=== PATIENT | male | born 1995 | race Caucasian/White ===

== ENCOUNTER → 2016-05-17 | Outpatient (CLI) | payer OTHER ==
--- NOTE | 2016-05-17 18:59 | MR ---
MR brain without contrast HISTORY: Absence epileptic syndrome Multiplanar multisequence imaging through the brain No comparisons Corpus callosum, pituitary, cervical medullary junction, cerebellopontine angles are unremarkable. No restricted diffusion to suggest subacute ischemia there is no hemorrhage or hydrocephalus. Extensive inflammatory change present in the ethmoid air cells and maxillary sinus. Brain signal is maintained . There are normal vascular flow voids. Orbits show symmetric appearance. IMPRESSION: Extensive sinus disease. Normal brain MRI.
== END | disposition home or self-care (01) ==
LOC: RADMRIMAIN 16:11
PROVIDERS: ATTEND Psychiatry & Neurology Neurology
DX: G40.A09 Absence epileptic syndrome, not intractable, without status epilepticus (principal)
CPT/HCPCS: 70551

== ENCOUNTER 2017-04-22 14:58 | Inpatient (IN) | payer MEDICAID, OTHER ==
--- NOTE | 2017-04-22 15:17 | ED ---
General Adult HPI - General Source: patient, family, police, RN notes reviewed, old records reviewed Mode of arrival: ambulatory Limitations: no limitations <Rodrigo Oliveira - Last Filed: 04/22/17 15:16> <Denny Casanova - Last Filed: 04/22/17 17:12> - General Chief complaint: Psychiatric Symptoms Stated complaint: Mental Health Eval Time Seen by Provider: 04/22/17 15:06 - History of Present Illness Initial comments: This is a 21-year-old male to the ER for evaluation. He presents today for evaluation regarding psychiatric illness. Patient states he needs help. Patient presents with [employer]. Patient denies drugs rel call abuse (Rodrigo Oliveira) - Related Data Allergies Allergy/AdvReac Type Severity Reaction Status Date / Time Cephalosporins Allergy Unknown Verified 04/22/17 15:15 iodine Allergy Unknown Verified 04/22/17 15:15 Penicillins Allergy Rash/Hives Verified 04/22/17 15:15 shellfish derived [Shellfish] Allergy Unknown Verified 04/22/17 15:15 sulfamethoxazole Allergy Unknown Verified 04/22/17 15:15 [From Bactrim] trimethoprim [From Bactrim] Allergy Unknown Verified 04/22/17 15:15 Review of Systems ROS Other: All systems not noted in ROS Statement are negative. <Rodrigo Oliveira - Last Filed: 04/22/17 15:16> ROS Other: All systems not noted in ROS Statement are negative. <Denny Casanova - Last Filed: 04/22/17 17:12> ROS Statement: Those systems with pertinent positive or pertinent negative responses have been documented in the HPI. Past Medical History Additional Past Medical History / Comment(s): Autism History of Any Multi-Drug Resistant Organisms: None Reported Additional Past Surgical History / Comment(s): eye surgery Past Psychological History: ADD/ADHD, Anxiety, Bipolar Smoking Status: Never smoker Past Alcohol Use History: None Reported Past Drug Use History: None Reported <Rodrigo Oliveira - Last Filed: 04/22/17 15:16> General Exam Limitations: no limitations General appearance: alert, in no apparent distress Head exam: Present: atraumatic, normocephalic, normal inspection Eye exam: Present: normal appearance, PERRL, EOMI. Absent: scleral icterus, conjunctival injection, periorbital swelling ENT exam: Present: normal exam, mucous membranes moist Neck exam: Present: normal inspection. Absent: tenderness, meningismus, lymphadenopathy Respiratory exam: Present: normal lung sounds bilaterally. Absent: respiratory distress, wheezes, rales, rhonchi, stridor Cardiovascular Exam: Present: regular rate, normal rhythm, normal heart sounds. Absent: systolic murmur, diastolic murmur, rubs, gallop, clicks GI/Abdominal exam: Present: soft, normal bowel sounds. Absent: distended, tenderness, guarding, rebound, rigid Extremities exam: Present: normal inspection, full ROM, normal capillary refill. Absent: tenderness, pedal edema, joint swelling, calf tenderness Back exam: Present: normal inspection Neurological exam: Present: alert, oriented X3, CN II-XII intact Psychiatric exam: Present: normal affect, normal mood Skin exam: Present: warm, dry, intact, normal color. Absent: rash <Rodrigo Oliveira - Last Filed: 04/22/17 15:16> Course <Rodrigo Oliveira - Last Filed: 04/22/17 15:16> <Denny Casanova - Last Filed: 04/22/17 17:12> Vital Signs 04/22/17 15:01 Temperature 99.4 F Pulse Rate 92 Respiratory 20 Rate Blood Pressure 139/80 O2 Sat by Pulse 97 Oximetry - Reevaluation(s) Reevaluation #1: 04/22/17 15:17 Medically clear for psychiatric evaluation (Rodrigo Oliveira) Medical Decision Making <Rodrigo Oliveira - Last Filed: 04/22/17 15:16> <Denny Casanova - Last Filed: 04/22/17 17:12> - Medical Decision Making Patient was evaluated by EPS and will be anteriorly signing in and being admitted. Further orders per EPS. (Denny Casanova) - Lab Data Lab Results 04/22/17 Range/Units 15:40 Urine Opiates Screen Not Detected (NotDetected) Ur Oxycodone Screen Not Detected (NotDetected) Urine Methadone Screen Not Detected (NotDetected) Ur Propoxyphene Screen Not Detected (NotDetected) Ur Barbiturates Screen Not Detected (NotDetected) U Tricyclic Antidepress Not Detected (NotDetected) Ur Phencyclidine Scrn Not Detected (NotDetected) Ur Amphetamines Screen Not Detected (NotDetected) U Methamphetamines Scrn Not Detected (NotDetected) U Benzodiazepines Scrn Not Detected (NotDetected) Urine Cocaine Screen Not Detected (NotDetected) U Marijuana (THC) Screen Not Detected (NotDetected) Disposition <Rodrigo Oliveira - Last Filed: 04/22/17 15:16> <Denny Casanova - Last Filed: 04/22/17 17:12> Clinical Impression: Depression Disposition: ADMITTED IP TO THIS HOSP Condition: Stable
[2017-04-22 16:03] LABS: Amphetamine Screen,Urine Not Detected (NotDetected); Barbiturate Screen,Urine Not Detected (NotDetected); Benzodiazepines Screen,Urine Not Detected (NotDetected); Cocaine Screen,Urine Not Detected (NotDetected); Methadone Screen, Urine Not Detected (NotDetected); Opiate Screen,Urine Not Detected (NotDetected); Oxycodone Screen, Urine Not Detected (NotDetected); Phencyclidine Screen,Urine Not Detected (NotDetected); Tricyclic Antidepressant,Urine Not Detected (NotDetected); Urn Cannabinoid Scrn Not Detected (NotDetected)
[2017-04-22] MEDS ORDERED: ACETAMINOPHEN TAB 325 MG TAB PO PRN (17:15)
[2017-04-22] MEDS ORDERED: MAG HYDROX/AL HYDROX/SIMETH 30 ML CUP PO PRN (17:15)
[2017-04-22] MEDS ORDERED: MAGNESIUM HYDROXIDE 2,400 MG/10 ML CUP PO PRN (17:15)
[2017-04-22 18:24] VITALS: BMI 36.8
[2017-04-22] MEDS: ARIPiprazole 15 MG TAB PO SCH (20:48)
[2017-04-22] MEDS: TRIAMCINOLONE ACET 0.5% CREAM 15 GM TUBE TOPICAL SCH (22:22)
[2017-04-23] MEDS: CHOLECALCIFEROL 1,000 UNIT TAB PO SCH (08:45)
[2017-04-23] MEDS: lamoTRIgine 100 MG TAB PO SCH ×2 (08:45→17:37)
[2017-04-23] MEDS: LORATADINE 10 MG TAB PO SCH (08:45)
[2017-04-23] MEDS: LISINOPRIL 5 MG TAB PO SCH (08:46)
[2017-04-23 08:54] LABS: Basophils % (A) 0 %; Eosinophils # (A) 0.3 k/uL (0-0.7); Eosinophils % (A) 4 %; HCT 54.9 % (39.0-53.0); HGB 17.2 gm/dL (13.0-17.5); Lymphocytes # (A) 1.5 k/uL (1.0-4.8); Lymphocytes % (A) 20 %; MCH 28.4 pg (25.0-35.0); MCHC 31.3 g/dL (31.0-37.0); MCV 90.7 fL (80.0-100.0); Mean Platelet Volume 7.1; Monocytes # (A) 0.4 k/uL (0-1.0); Monocytes % (A) 6 %; Neutrophils % (A) 68 %; Platelet Count 223 k/uL (150-450); RBC 6.05 m/uL (4.30-5.90); RDW 12.5 % (11.5-15.5); WBC 7.3 k/uL (4.0-11.0)
[2017-04-23 08:55] LABS: ALT 98 U/L (21-72); AST 43 U/L (17-59); Albumin 4.7 g/dL (3.5-5.0); Alkaline Phosphatase 86 U/L (38-126); Anion Gap 15 mmol/L; Blood Urea Nitrogen 19 mg/dL (9-20); Calcium 10.1 mg/dL (8.4-10.2); Carbon Dioxide 30 mmol/L (22-30); Chloride 99 mmol/L (98-107); Cholesterol 157 mg/dL (<200); Glucose 107 mg/dL (74-99); HDL Cholesterol 35 mg/dL (40-60); LDL Cholesterol,Calculated 95 mg/dL (0-99); Potassium 5.1 mmol/L (3.5-5.1); Sodium 144 mmol/L (137-145); Total Bilirubin 0.5 mg/dL (0.2-1.3); Total Protein 7.4 g/dL (6.3-8.2); Triglycerides 133 mg/dL (<150)
[2017-04-23] MEDS: TRIAMCINOLONE ACET 0.5% CREAM 15 GM TUBE TOPICAL SCH (11:02)
--- NOTE | 2017-04-23 13:59 | HP ---
HISTORY AND PHYSICAL DATE OF ADMISSION: 04/22/2017 IDENTIFYING DATA: A 21-year-old single male patient. HISTORY OF PRESENT ILLNESS: Mr. White is admitted to the inpatient psychiatric unit with concerns of depression and thoughts of suicide. Patient states he was having thoughts of suicide. Said he had multiple plans to stab himself, slice his wrist upwards, slash his throat, [place] and [place] someone off or jumping in front of a car. He states that the thoughts of suicide started about a week ago and has been consistent since then. Says he was not feeling safe. He says he was brought here by the police. He had some discussions through [facility] and they told his mom to call the police. He was compliant with the police. He says that he has had a lot of depression lately. Stressors have been issues with online issues with a game and it was people being he says weird and trying to start stuff. Sleep and appetite; sleep has been decreased. Appetite has been minimal. He has had decreased interest in things. He states that his Paxil was started about a week ago to help with social anxiety. It changed from Lexapro and he feels like he is having withdrawal from Lexapro. He is feeling much better it sounds like when he was on the Lexapro. PSYCHIATRIC HISTORY: Most recent medications include Abilify 15 mg at bedtime. Paxil was 20 mg daily, Lamictal 150 mg b.i.d. He does give history of manic episodes as well as depression. He sees a therapist, Suzanne, and his psychiatrist is Dr. Guadarrama. The Lexapro was changed to Paxil approximately a week ago. He wants to get back on Lexapro because he felt good on that. He has had 2 admissions as a 14-year-old to an inpatient psychiatric unit. No history of suicide attempts. PSYCHIATRIC FAMILY HISTORY: Mom and dad with depression. MEDICAL HISTORY: Hypertension. CURRENT MEDICATIONS: Tylenol p.r.n., Maalox p.r.n., Abilify, Broviac, vitamin D3, Lamictal, Zestril, Claritin, milk of magnesia p.r.n., Paxil. DRUG AND ALCOHOL HISTORY: Denies. SOCIAL HISTORY: Lives with his mom and cat. He went to school through the 11th grade. He is not doing any current work. He is on disability for mental health. He is in a current relationship with he says his girlfriend who he has met on line for the last couple weeks. He has not met her or seen pictures of her. He does talk with her online. MENTAL STATUS EXAM: He is alert, pleasant, and cooperative. His speech is fluent not rapid or pressured. Thought processes organized. His mood is described as "kind of low." He denies any thoughts of harm to self currently and feels safe here on the unit. He denies any thoughts of harm to others. He denies any hallucinations. He does not make any giuseppe delusional statements. Cognitively appears to be grossly intact. I do not note any significant disorientation or memory disturbance. STRENGTHS/WEAKNESSES: Strengths are seeking treatment. Weaknesses are coping skills. IMPRESSIONS: 1. Bipolar disorder, depressed. 2. Social anxiety disorder by history. PLAN OF TREATMENT/RECOMMENDATIONS: Patient is admitted to the inpatient psychiatric unit at [facility] on a voluntary basis. He will be placed on a SP 50 minute precautions. He will participate in group and activity therapies basic laboratory workup to be done. The patient medical consultation will be ordered. Will maintain Lamictal 150 mg b.i.d. as a mood stabilizer and Abilify 15 mg at bedtime to also assist with mood stabilization. We will discontinue the Paxil and place him back on Lexapro, which he describes a positive response to and good tolerability at 10 mg daily. We will look into family supports. Estimated length of stay is 5-7 days. Prognosis is guarded. MMODL / IJN: [id number] /
[2017-04-23] MEDS: ESCITALOPRAM 10 MG TAB PO SCH (14:03)
[2017-04-23] MEDS: BRIVIACT 50 MG PO SCH ×3 (15:44→19:46)
[2017-04-23] MEDS ORDERED: PARoxetine 20 MG TAB PO SCH (17:00)
[2017-04-23 19:21] LABS: Hemoglobin A1C 5.4 % (4.0-6.0)
[2017-04-23] MEDS: ARIPiprazole 15 MG TAB PO SCH (21:03)
[2017-04-24] MEDS: LORATADINE 10 MG TAB PO SCH (08:07)
[2017-04-24] MEDS: ESCITALOPRAM 10 MG TAB PO SCH (08:07)
[2017-04-24] MEDS: lamoTRIgine 100 MG TAB PO SCH ×2 (08:07→17:45)
[2017-04-24] MEDS: LISINOPRIL 5 MG TAB PO SCH (08:07)
[2017-04-24] MEDS: CHOLECALCIFEROL 1,000 UNIT TAB PO SCH (08:09)
[2017-04-24] MEDS: BRIVIACT 50 MG PO SCH ×2 (09:06→17:44)
--- NOTE | 2017-04-24 13:03 | PN ---
DATE OF SERVICE: 04/24/2017 PROGRESS NOTE CHIEF COMPLAINT: The patient was admitted for depression. He had thoughts of suicide. He was not feeling safe. INTERVAL HISTORY: Patient has been doing fairly well. He said the main issue that he thinks was bothering him was that he was switched from Lexapro to Paxil. He had been taking Lexapro 20 mg a day. About 2 weeks ago, the Lexapro was discontinued altogether and he was started on Paxil. He said very quickly after the change he started having what he felt was withdrawal from Lexapro. He had mood changes. He had physical symptoms. He was vague on particulars. He said he had gotten started on Paxil for social anxiety problems. He says now that he is back on Lexapro he feels much relieved. He says he is back to his baseline. His mood is improving. He has a better outlook. Physical symptoms have quieted. He slept fairly well last night. He has not had change in his general health. He tolerates his psychotropic medications. MENTAL STATUS: The patient gave good eye contact. Psychomotor activity and speech were normal. His thoughts were clear. His affect was somewhat constricted. His mood was even. He did not appear to be distressed. ASSESSMENT: I will continue the current diagnosis and treatment plan. I discussed medication options with the patient. At this point, we will increase his Lexapro back up to 20 mg a day where he had been previously. I discussed long-term treatment issues in regards to his antidepressants. There might be consideration for further increase in his Lexapro that could help social anxiety disorder. We will continue to focus on stabilization and discharge planning. MMODL / DOMINGAN: [id number] / MTDD
--- NOTE | 2017-04-24 17:29 | P.CON ---
Consult Note - . Consult date: 04/23/17 Assessment/Plan:: Mr. White is a 21-year-old male with a past medical history of hypertension , anxiety, bipolar disorder admitted to the psychiatric unit for suicidal ideation. We are consulted for management of his medical issues. Pt has been escorted by police for suicidal ideation. Patient states that he does not have any active ongoing medical complaints. On reviewing his past medical history he has hypertension for which she takes 5 mg of lisinopril. He was started on lisinopril for the past 1 month. There is family history of hypertension in both of his patients. REVIEW OF SYSTEMS: NEURO:No c/o weakness of the extremties, No facial droop, No speech abnormalities. VASCULAR: Peripheral nervous system within the normal limits no edema HEMATOLOGIC: No history of easy bleeding and bruising . No recent infections . RESPIRATORY: No cough, No SOB, No chest discomfort. IMMUNE: No infections INTEGUMENT: no rashes OPHTHALMOLOGIC: No blurry vision and no eye discharge : No dysuria or hematuria CARDIAC: No chest pain , shortness of breath , paroxysmal nocturnal dyspnea MUSCULOSKELETAL : No Aches or pains in the joints or muscles. GI: No abdominal pain, Nausea or vomiting. No constipation or diarrhea. Past medical history- hypertension, anxiety, bipolar disorder Medications -triamcinolone 0.5% cream, vitamin D3 5000 units by mouth daily, paroxetine 20 mg by mouth daily, Lamictal 150 mg daily, Gaunfacine 4 mg by mouth daily, Dexmethylphenidate 30 mg by mouth daily, Abilify 50 medical as by mouth daily, Brivaractetam 50 mg BID. ALLERGIES Allergies Allergy/AdvReac Type Severity Reaction Status Date / Time Cephalosporins Allergy Unknown Verified 04/22/17 15:15 iodine Allergy Unknown Verified 04/22/17 15:15 Penicillins Allergy Rash/Hives Verified 04/22/17 15:15 shellfish derived [Shellfish] Allergy Unknown Verified 04/22/17 15:15 sulfamethoxazole Allergy Unknown Verified 04/22/17 15:15 [From Bactrim] trimethoprim [From Bactrim] Allergy Unknown Verified 04/22/17 15:15 Family history_ hypertension in both her parents Social history- denies having any history of smoking, no alcohol abuse, no recreational drugs PHYSICAL exam 04/22/17 15:01 Temperature 99.4 F Pulse Rate 92 Respiratory 20 Rate Blood Pressure 139/80 O2 Sat by Pulse 97 Oximetry GENERAL EXAM GEN. APPEARANCE: alert, in no apparent distress HEAD EXAM: atraumatic, normocephalic, normal inspection EYE EXAM: normal appearance, PERRL, EOMI. Absent: scleral icterus, conjunctival injection, periorbital swelling ENT EXAM: normal exam, mucous membranes moist NECK EXAM: normal inspection. Absent: tenderness, meningismus, full ROM, lymphadenopathy RESPIRATORY EXAM: normal lung sounds bilaterally. Absent: respiratory distress , wheezes, rales, rhonchi, stridor CARDIOVASCULAR EXAM: regular rate, normal rhythm, normal heart sounds. Absent : systolic murmur, diastolic murmur, rubs, gallop, clicks GI/ABDOMINAL EXAM: soft, normal bowel sounds. Absent: distended, tenderness, guarding, rebound, rigid EXTREMITIES EXAM: normal inspection, full ROM, normal capillary refill. Absent : tenderness, pedal edema, joint swelling, calf tenderness BACK EXAM: normal inspection NEUROLOGICAL EXAM: alert, oriented X3, CN II-XII intact, No gross motor or sensory deficit SKIN EXAM: warm, dry, intact, normal color. Absent: rash- ASSESSMENT #1 suicidal ideation #2 hypertension #3 history of anxiety #4 history of bipolar disorder PLAN : Management of his bipolar disorder as per psychiatric services. Patient has to be continued on 5 mg of lisinopril for his hypertension. Patient's labs have been reviewed Will follow the patient on as-needed basis. Thank you for the consult.
[2017-04-24] MEDS: ARIPiprazole 15 MG TAB PO SCH (20:04)
[2017-04-25 06:53] VITALS: BP 117/70; PULSE 82; RESP 17; TEMP 97.5
[2017-04-25] MEDS: BRIVIACT 50 MG PO SCH (08:04)
[2017-04-25] MEDS: CHOLECALCIFEROL 1,000 UNIT TAB PO SCH (08:05)
[2017-04-25] MEDS: lamoTRIgine 100 MG TAB PO SCH (08:06)
[2017-04-25] MEDS: LORATADINE 10 MG TAB PO SCH (08:07)
[2017-04-25] MEDS: LISINOPRIL 5 MG TAB PO SCH (08:07)
[2017-04-25] MEDS ORDERED: ESCITALOPRAM 20 MG TAB PO SCH (09:00)
--- NOTE | 2017-04-25 12:29 | DS ---
DISCHARGE SUMMARY DATE OF SERVICE: 04/25/2017 DATE OF ADMISSION: 04/22/2017. DATE OF DISCHARGE: 04/25/2017. ADMISSION AND DISCHARGE DIAGNOSES: 1. Bipolar disorder, depressed. 2. Social anxiety disorder by history. HISTORY OF PRESENT ILLNESS: The patient is a 21-year-old male. He was admitted for depression with thoughts of suicide. He had multiple plans such as cutting his wrist, cutting his throat, jumping in front of a car. He said that he started having suicide thoughts in the last week and that he was not feeling safe. He has some contact with [facility], where he has ongoing care. It was difficult to be clear what stress issues he was dealing with. One was that he was involved in some online lamar issues where he apparently felt belittled by people. He had not been sleeping well. Appetite was down. He had loss of interest. One issue was that just recently he had been taken off of Lexapro and started on Paxil. He said that the Lexapro was stopped abruptly. He was started on Paxil 20 mg a day about 2 weeks prior to admission. He said he felt that he was in some kind withdrawal from stopping the Lexapro. He felt physically uncomfortable, but he had trouble giving details. He had a lot of anxiety. He was also on Abilify 15 mg a day and Lamictal 150 mg twice a day. He is followed by Dr. Guadarrama at the [facility]. He was admitted for further evaluation. PAST MEDICAL HISTORY AND PHYSICAL EXAM: As per Dr. Ndiaye. MENTAL STATUS EXAM: The patient presented in a calm manner. His speech was appropriate. Thought process organized. Mood somewhat down. He denied thoughts of harm at the time of evaluation. He felt safe on the unit. There was no indication of thought disorder. Cognition was clear. COURSE OF HOSPITALIZATION: The patient was admitted for comprehensive medical psychiatric and psychosocial evaluation. We engaged the patient in individual and group therapeutic activities. On admission, the patient requested to go back on the Lexapro. He was started on 10 mg a day and then the dose was increased to 20 mg a day which he said he had been taking previously. He was also continued on the Abilify and Lamictal. The patient maintained a fairly good mood during his hospital stay. He voiced no thoughts about self-harm. He felt that those issues were completely gone. He would come out in the day area. He was appropriate in his interactions with others. He attended groups. He was an active participant. He established a good sleep pattern. He was appropriate in his interactions. He voiced motivation to continue with his medications. He was able to engage in appropriate discussions about discharge planning. A family meeting with the patient and his mother was held at the day of discharge to address any concerns in regards to follow up. CONDITION AT DISCHARGE: Patient was stable. His mood was even. He voiced no thoughts of self-harm. He tolerated his medications well. RECOMMENDATIONS AND FOLLOW UP: The patient was discharged to home. He resides with his mother. DISCHARGE MEDICATIONS: Lamictal 150 mg twice a day. Abilify 15 mg a day and Lexapro 20 mg a day. He also had been on Intuniv and Focalin prior to admission. The appropriateness of those medications was to be deferred to Dr. Guadarrama when the patient is seen in followup. The patient has a followup appointment at [facility], 04/28/2017 at 1:30 pm. He was also referred back to Dr. Moralez for primary care. MMODL / IJN: [id number] /
== END 2017-04-25 12:47 | disposition home or self-care (01) | DRG 881 ==
LOC: EC 14:58 → 3MHU 17:02
PROVIDERS: ADMIT Psychiatry & Neurology Psychiatry; ATTEND Psychiatry & Neurology Psychiatry
DX: F32.9 Major depressive disorder, single episode, unspecified (principal); R45.851 Suicidal ideations; F40.10 Social phobia, unspecified; I10 Essential (primary) hypertension; F90.9 Attention-deficit hyperactivity disorder, unspecified type; F84.0 Autistic disorder; Z91.5 Personal history of self-harm; Z82.49 Family history of ischemic heart disease and other diseases of the circulatory system; Z88.8 Allergy status to other drugs, medicaments and biological substances; Z81.8 Family history of other mental and behavioral disorders; Z91.041 Radiographic dye allergy status; Z88.0 Allergy status to penicillin; Z91.013 Allergy to seafood; Z79.899 Other long term (current) drug therapy
CPT/HCPCS: 80053; 80061; 80306; 82075; 83036; 84443; 85025; 99285

== ENCOUNTER → 2017-06-24 | Outpatient (CLI) | payer OTHER | END | disposition home or self-care (01) | LOC: LABWHC1 10:18 | PROVIDERS: ATTEND Psychiatry & Neurology Neurology | DX: G40.A09 Absence epileptic syndrome, not intractable, without status epilepticus (principal) | CPT/HCPCS: 36415; 80175 ==

== ENCOUNTER 2018-02-23 15:30 | Inpatient (IN) | payer MEDICAID, OTHER ==
--- NOTE | 2018-02-23 16:33 | ED ---
Psych HPI - General Chief Complaint: Psychiatric Symptoms Stated Complaint: mental health Time Seen by Provider: 02/23/18 15:51 Source: patient, family, police, RN notes reviewed Mode of arrival: ambulatory Limitations: no limitations - History of Present Illness Initial Comments: 22-year-old male presents emergency Department with police and family for psychiatric evaluation. Patient states she seemed severely depressed, suicidal. Patient states he had a knife and he was in the step himself. Patient states that he did punch a wall with his right hand and has some bruising and abrasions. He states he is up-to-date on his tetanus. Patient does see psychiatrist on psychiatric medications. Patient denies drug use states he occasionally uses alcohol. Denies any other complaints. - Related Data Home Medications Medication Instructions Recorded Confirmed Brivaracetam [Briviact] 50 mg PO BID 04/22/17 02/23/18 Cholecalciferol [Vitamin D3] 5,000 unit PO DAILY 04/22/17 02/23/18 Dexmethylphenidate HCl [Focalin Xr] 30 mg PO QAM 04/22/17 02/23/18 Lisinopril [Prinivil] 5 mg PO DAILY 04/22/17 02/23/18 Loratadine [Claritin] 10 mg PO DAILY 04/22/17 02/23/18 guanFACINE HCL [Intuniv] 4 mg PO DAILY 04/22/17 02/23/18 EPINEPHrine (Auto Inject) [Epipen] 0.3 mg IM ONCE PRN 02/23/18 02/23/18 cloNIDine HCL [Catapres] 0.05 mg PO DAILY PRN 02/23/18 02/23/18 cloNIDine HCL [Catapres] 0.1 mg PO HS 02/23/18 02/23/18 lamoTRIgine [LaMICtal] 150 mg PO BID 02/23/18 02/23/18 Previous Rx's Medication Instructions Recorded ARIPiprazole [Abilify] 15 mg PO HS #30 tab 04/25/17 Escitalopram [Lexapro] 20 mg PO DAILY #30 tab 04/25/17 Allergies Allergy/AdvReac Type Severity Reaction Status Date / Time Cephalosporins Allergy Unknown Verified 02/23/18 16:17 iodine Allergy Unknown Verified 02/23/18 16:17 Penicillins Allergy Rash/Hives Verified 02/23/18 16:17 shellfish derived [Shellfish] Allergy Unknown Verified 02/23/18 16:17 sulfamethoxazole Allergy Unknown Verified 02/23/18 16:17 [From Bactrim] trimethoprim [From Bactrim] Allergy Unknown Verified 02/23/18 16:17 Review of Systems ROS Statement: Those systems with pertinent positive or pertinent negative responses have been documented in the HPI. ROS Other: All systems not noted in ROS Statement are negative. Past Medical History Past Medical History: Hypertension Additional Past Medical History / Comment(s): Autism History of Any Multi-Drug Resistant Organisms: None Reported Past Surgical History: No Surgical Hx Reported Additional Past Surgical History / Comment(s): eye surgery Past Anesthesia/Blood Transfusion Reactions: No Reported Reaction Past Psychological History: ADD/ADHD, Anxiety, Bipolar Smoking Status: Never smoker Past Alcohol Use History: None Reported Past Drug Use History: None Reported General Exam Limitations: no limitations General appearance: alert, in no apparent distress Head exam: Present: atraumatic, normocephalic, normal inspection Eye exam: Present: normal appearance, PERRL, EOMI. Absent: scleral icterus, conjunctival injection, periorbital swelling ENT exam: Present: normal exam, normal oropharynx, mucous membranes moist, TM's normal bilaterally Neck exam: Present: normal inspection, full ROM. Absent: tenderness, meningismus, lymphadenopathy Respiratory exam: Present: normal lung sounds bilaterally. Absent: respiratory distress, wheezes, rales, rhonchi, stridor Cardiovascular Exam: Present: regular rate, normal rhythm, normal heart sounds. Absent: systolic murmur, diastolic murmur, rubs, gallop, clicks GI/Abdominal exam: Present: soft, normal bowel sounds. Absent: distended, tenderness, guarding, rebound, rigid Extremities exam: Present: other (Right hand mild tenderness with palpation, abrasions noted over the PIP region, no obvious deformity Refill less than 2 seconds neurovascular intact) Neurological exam: Present: alert, oriented X3, CN II-XII intact Psychiatric exam: Present: depressed Skin exam: Present: warm, dry, intact, normal color. Absent: rash Course Vital Signs 02/23/18 15:33 Temperature 98.2 F Pulse Rate 78 Respiratory 20 Rate Blood Pressure 118/85 O2 Sat by Pulse 99 Oximetry Medical Decision Making - Medical Decision Making Patient will be admitted for psychiatric inpatient therapy Disposition Clinical Impression: Depression, Suicidal ideation Disposition: ADMITTED IP TO THIS HOSP Referrals: [facility] [Primary Care Provider] - 1-2 days
[2018-02-23] MEDS ORDERED: ACETAMINOPHEN TAB 500 MG TAB PO STA (18:17)
--- NOTE | 2018-02-23 18:47 | XR ---
EXAMINATION TYPE: XR hand complete RT DATE OF EXAM: 02/23/2018 CLINICAL HISTORY: Right hand pain TECHNIQUE: Frontal, lateral and oblique images of the right hand are obtained. COMPARISON: None. FINDINGS: There is no acute fracture/dislocation evident in the right hand. The joint spaces in the right hand appear within normal limits. The overlying soft tissue appears unremarkable. IMPRESSION: Unremarkable study.
[2018-02-23] MEDS ORDERED: MAGNESIUM HYDROXIDE 2,400 MG/10 ML CUP PO PRN (20:37)
[2018-02-23] MEDS ORDERED: ACETAMINOPHEN TAB 325 MG TAB PO PRN (20:37)
[2018-02-23] MEDS ORDERED: MAG HYDROX/AL HYDROX/SIMETH 30 ML CUP PO PRN (20:37)
[2018-02-23] MEDS ORDERED: LORazepam 2 MG/ML INJ IM PRN (20:43)
[2018-02-23] MEDS ORDERED: LORazepam 1 MG TAB PO PRN (20:49)
[2018-02-23] MEDS: lamoTRIgine 25 MG TAB PO SCH (21:01)
[2018-02-23] MEDS: ARIPiprazole 15 MG TAB PO SCH (21:01)
[2018-02-23] MEDS: cloNIDine HCL 0.1 MG TAB PO SCH (21:01)
[2018-02-23] MEDS: LACOSAMIDE 50 MG TABLET PO SCH (21:02)
[2018-02-23 21:08] LABS: Amphetamine Screen,Urine Not Detected (NotDetected); Barbiturate Screen,Urine Not Detected (NotDetected); Benzodiazepines Screen,Urine Not Detected (NotDetected); Cocaine Screen,Urine Not Detected (NotDetected); Methadone Screen, Urine Not Detected (NotDetected); Opiate Screen,Urine Not Detected (NotDetected); Oxycodone Screen, Urine Not Detected (NotDetected); Phencyclidine Screen,Urine Not Detected (NotDetected); Tricyclic Antidepressant,Urine Not Detected (NotDetected); Urn Cannabinoid Scrn Not Detected (NotDetected)
[2018-02-23 21:09] LABS: Appearance,Urine Clear (Clear); Bilirubin,Urine Negative (Negative); Blood,Urine Negative (Negative); Color,Urine Yellow; Glucose,Urine (UA) Negative (Negative); Ketones,Urine Negative (Negative); Leukocyte Esterase,Urine Negative (Negative); Nitrite,Urine Negative (Negative); PH, Urine 7.5 (5.0-8.0); Protein,Urine Negative (Negative); Specific Gravity,Urine 1.017 (1.001-1.035)
[2018-02-24 06:09] VITALS: BMI 36.1
[2018-02-24] MEDS: CHOLECALCIFEROL 1,000 UNIT TAB PO SCH (08:17)
[2018-02-24] MEDS: ESCITALOPRAM 20 MG TAB PO SCH (08:17)
[2018-02-24] MEDS: LISINOPRIL 5 MG TAB PO SCH (08:18)
[2018-02-24] MEDS: LORATADINE 10 MG TAB PO SCH (08:18)
[2018-02-24] MEDS: LACOSAMIDE 50 MG TABLET PO SCH ×2 (08:18→20:11)
[2018-02-24] MEDS: lamoTRIgine 25 MG TAB PO SCH ×2 (08:19→20:11)
--- NOTE | 2018-02-24 11:05 | P.HP ---
Psychiatric H&P - . H&P Date: 02/24/18 History & Physical: Allergies Allergy/AdvReac Type Severity Reaction Status Date / Time Cephalosporins Allergy Unknown Verified 02/24/18 06:10 iodine Allergy Unknown Verified 02/24/18 06:10 Penicillins Allergy Rash/Hives Verified 02/24/18 06:10 shellfish derived [Shellfish] Allergy Unknown Verified 02/24/18 06:10 sulfamethoxazole Allergy Unknown Verified 02/24/18 06:10 [From Bactrim] trimethoprim [From Bactrim] Allergy Unknown Verified 02/24/18 06:10 Vital Signs Temp 97.9 F 02/24/18 06:27 Pulse 68 02/24/18 06:27 Resp 16 02/24/18 06:27 BP 110/62 02/24/18 06:27 Pulse Ox 95 02/23/18 19:31 Intake & Output 02/23/18 02/24/18 02/24/18 18:59 06:59 18:59 Weight 117.934 kg 114.2 kg Laboratory Last Values Urine Color Yellow 02/23/18 18:28 Urine Appearance Clear (Clear) 02/23/18 18:28 Urine pH 7.5 (5.0-8.0) 02/23/18 18:28 Ur Specific [place] 1.017 (1.001-1.035) 02/23/18 18:28 Urine Protein Negative (Negative) 02/23/18 18:28 Urine Glucose (UA) Negative (Negative) 02/23/18 18:28 Urine Ketones Negative (Negative) 02/23/18 18:28 Urine Blood Negative (Negative) 02/23/18 18:28 Urine Nitrite Negative (Negative) 02/23/18 18:28 Urine Bilirubin Negative (Negative) 02/23/18 18:28 Urine Urobilinogen 2.0 mg/dL (<2.0) 02/23/18 18:28 Ur Leukocyte Esterase Negative (Negative) 02/23/18 18:28 Urine Opiates Screen Not Detected (NotDetected) 02/23/18 18:28 Ur Oxycodone Screen Not Detected (NotDetected) 02/23/18 18:28 Urine Methadone Screen Not Detected (NotDetected) 02/23/18 18:28 Ur Propoxyphene Screen Not Detected (NotDetected) 02/23/18 18:28 Ur Barbiturates Screen Not Detected (NotDetected) 02/23/18 18:28 U Tricyclic Antidepress Not Detected (NotDetected) 02/23/18 18:28 Ur Phencyclidine Scrn Not Detected (NotDetected) 02/23/18 18:28 Ur Amphetamines Screen Not Detected (NotDetected) 02/23/18 18:28 U Methamphetamines Scrn Not Detected (NotDetected) 02/23/18 18:28 U Benzodiazepines Scrn Not Detected (NotDetected) 02/23/18 18:28 Urine Cocaine Screen Not Detected (NotDetected) 02/23/18 18:28 U Marijuana (THC) Screen Not Detected (NotDetected) 02/23/18 18:28 02/24/18 11:02 Chief Complaint : Suicidal ideation HPI : Mr. May is 22 yo single male with h/o depression and autism admitted here secondary to suicidal ideation with a plan to slit his throat. Reportedly he has been feeling depressed lately. It has been getting worse. He has been suicidal in past and attempted by suffocating himself. He has been treated with antidepressants and he ash sbeen complaint on his medications. He denies any symptoms of mood swings, psychoses or OCD. PPH : Depression PMH : None Allergies : NKDA Substance Abuse : None Personal: Lives with his mother. He is disabled. MSE : Alert, awake, oriented in all spheres. Poor eye contact. Speech slow in soft tone, Mood dysphoric with congruent affect. Has suicidal ideation. No symptoms of psychoses. Insight and Judgment poor. A/P : Major Depressive Disorder, Recurrent without psychotic features Will resume and adjust medications accordingly.
[2018-02-24 13:04] LABS: Basophils % (A) 0 %; Eosinophils # (A) 0.3 k/uL (0-0.7); Eosinophils % (A) 4 %; HCT 50.4 % (39.0-53.0); HGB 16.9 gm/dL (13.0-17.5); Lymphocytes # (A) 1.8 k/uL (1.0-4.8); Lymphocytes % (A) 24 %; MCH 29.6 pg (25.0-35.0); MCHC 33.4 g/dL (31.0-37.0); MCV 88.6 fL (80.0-100.0); Mean Platelet Volume 6.8; Monocytes # (A) 0.4 k/uL (0-1.0); Monocytes % (A) 5 %; Neutrophils % (A) 65 %; Platelet Count 199 k/uL (150-450); RBC 5.69 m/uL (4.30-5.90); RDW 12.8 % (11.5-15.5); WBC 7.7 k/uL (3.8-10.6)
[2018-02-24 13:11] LABS: ALT 125 U/L (21-72); AST 63 U/L (17-59); Albumin 4.6 g/dL (3.5-5.0); Alkaline Phosphatase 87 U/L (38-126); Anion Gap 11 mmol/L; Blood Urea Nitrogen 20 mg/dL (9-20); Calcium 9.7 mg/dL (8.4-10.2); Carbon Dioxide 29 mmol/L (22-30); Chloride 100 mmol/L (98-107); Cholesterol 175 mg/dL (<200); Glucose 81 mg/dL (74-99); HDL Cholesterol 37 mg/dL (40-60); LDL Cholesterol,Calculated 103 mg/dL (0-99); Potassium 4.5 mmol/L (3.5-5.1); Sodium 140 mmol/L (137-145); Total Bilirubin 0.4 mg/dL (0.2-1.3); Total Protein 7.5 g/dL (6.3-8.2); Triglycerides 177 mg/dL (<150)
--- NOTE | 2018-02-24 17:39 | P.HPIM ---
History of Present Illness This is a pleasant 22 years old male with past medical history of asthma, hypertension who presents with signs and symptoms of bipolar disorder. We've been consulted for medical management Patient denies chest pain, no dyspnea. No change in urine or bowel habits. No fever. No nausea vomiting. Review of Systems CONSTITUTIONAL: No fever, no malaise, no fatigue. HEENT: No recent visual problems or hearing problems. Denied any sore throat. CARDIOVASCULAR: No orthopnea, PND, no palpitations, no syncope. PULMONARY: No shortness of breath, no cough, no hemoptysis. GASTROINTESTINAL: No diarrhea, no nausea, no vomiting, no abdominal pain. Normoactive bowel sounds. NEUROLOGICAL: No headaches, no weakness, no numbness. HEMATOLOGICAL: Denies any bleeding or petechiae. GENITOURINARY: Denies any burning micturition, frequency, or urgency. MUSCULOSKELETAL/RHEUMATOLOGICAL: Denies any joint pain, swelling, or any muscle pain. ENDOCRINE: Denies any polyuria or polydipsia. Past Medical History Past Medical History: Hypertension Additional Past Medical History / Comment(s): Autism History of Any Multi-Drug Resistant Organisms: None Reported Past Surgical History: No Surgical Hx Reported Additional Past Surgical History / Comment(s): eye surgery Past Anesthesia/Blood Transfusion Reactions: No Reported Reaction Smoking Status: Never smoker Medications and Allergies Home Medications Medication Instructions Recorded Confirmed Type Brivaracetam [Briviact] 50 mg PO BID 04/22/17 02/23/18 History Cholecalciferol [Vitamin D3] 5,000 unit PO DAILY 04/22/17 02/23/18 History Dexmethylphenidate HCl [Focalin Xr] 30 mg PO QAM 04/22/17 02/24/18 History Lisinopril [Prinivil] 5 mg PO DAILY 04/22/17 02/24/18 History Loratadine [Claritin] 10 mg PO DAILY 04/22/17 02/24/18 History guanFACINE HCL [Intuniv] 4 mg PO DAILY 04/22/17 02/24/18 History ARIPiprazole [Abilify] 15 mg PO HS #30 tab 04/25/17 02/23/18 Rx Escitalopram [Lexapro] 20 mg PO DAILY #30 tab 04/25/17 02/24/18 Rx EPINEPHrine (Auto Inject) [Epipen] 0.3 mg IM ONCE PRN 02/23/18 02/24/18 History cloNIDine HCL [Catapres] 0.05 mg PO DAILY PRN 02/23/18 02/24/18 History cloNIDine HCL [Catapres] 0.1 mg PO HS 02/23/18 02/24/18 History lamoTRIgine [LaMICtal] 150 mg PO BID 02/23/18 02/24/18 History Allergies Allergy/AdvReac Type Severity Reaction Status Date / Time Cephalosporins Allergy Unknown Verified 02/24/18 06:10 iodine Allergy Unknown Verified 02/24/18 06:10 Penicillins Allergy Rash/Hives Verified 02/24/18 06:10 shellfish derived [Shellfish] Allergy Unknown Verified 02/24/18 06:10 sulfamethoxazole Allergy Unknown Verified 02/24/18 06:10 [From Bactrim] trimethoprim [From Bactrim] Allergy Unknown Verified 02/24/18 06:10 Physical Exam Vitals: Vital Signs Temp Pulse Pulse Resp BP BP Pulse Ox 02/24/18 06:27 97.9 F 68 16 110/62 02/24/18 05:57 98.6 F 169 H 17 130/75 02/23/18 19:31 97.6 F 103 H 18 141/77 95 Intake and Output 02/24/18 02/24/18 02/24/18 06:59 14:59 22:59 Other: Weight 114.2 kg GENERAL: The patient is alert and oriented x3, not in any acute distress. Well developed, well nourished. HEENT: Pupils are round and equally reacting to light. EOMI. No scleral icterus. No conjunctival pallor. Normocephalic, atraumatic. No pharyngeal erythema. No thyromegaly. CARDIOVASCULAR: S1 and S2 present. No murmurs, rubs, or gallops. PULMONARY: Chest is clear to auscultation, no wheezing or crackles. ABDOMEN: Soft, nontender, nondistended, normoactive bowel sounds. No palpable organomegaly. MUSCULOSKELETAL: No joint swelling or deformity. EXTREMITIES: No cyanosis, clubbing, or pedal edema. NEUROLOGICAL: Gross neurological examination did not reveal any focal deficits. SKIN: No rashes. Labs and medication were reviewed.. Continue same treatment. Continue with symptomatic treatment. Resume home medication. Monitor lytes and vitals. DVT and GI prophylaxis. Further recommendations of the clinical course of the patient DVT prophylaxis: Subcutaneous heparin GI Prophylaxis: Pepcid PT/OT: Pending Prognosis is guarded Results CBC & Chem 7: 02/24/18 12:16 02/24/18 12:16 Labs: Abnormal Lab Results - Last 24 Hours (Table) 02/24/18 Range/Units 12:16 AST 63 H (17-59) U/L ALT 125 H (21-72) U/L Triglycerides 177 H (<150) mg/dL LDL Cholesterol, Calc 103 H (0-99) mg/dL HDL Cholesterol 37 L (40-60) mg/dL Thrombosis Risk Factor Assmnt - Choose All That Apply Any of the Below Risk Factors Present?: Yes Each Factor Represents 1 point: Obesity (BMI >25) Thrombosis Risk Factor Assessment Total Risk Factor Score: 1 Thrombosis Risk Factor Assessment Level: Low Risk Assessment and Plan Assessment: History of asthma, active issue Story of hypertension Bipolar disorder and other psychiatric illnesses as per the psych team Mildly elevated liver function test and enzymes Slightly abnormal liver profile Plan: This is a pleasant 22 years old male presents with bipolar disorder. Continue with lisinopril for his blood pressure. Start Lipitor follow-up liver enzymes. Labs and medication were reviewed.. Continue same treatment. Continue with symptomatic treatment. Resume home medication. Monitor lytes and vitals. DVT and GI prophylaxis. Further recommendations of the clinical course of the patient DVT prophylaxis: no heparin, patient is mobile Recommend patient follow up with his PCP within one week whenever discharge. Thank you for consulting us
[2018-02-24 17:46] LABS: Hemoglobin A1C 5.5 % (4.0-6.0)
[2018-02-24] MEDS: cloNIDine HCL 0.1 MG TAB PO SCH (20:11)
[2018-02-24] MEDS: ARIPiprazole 15 MG TAB PO SCH (20:11)
[2018-02-25] MEDS: LACOSAMIDE 50 MG TABLET PO SCH ×2 (08:34→20:15)
[2018-02-25] MEDS: CHOLECALCIFEROL 1,000 UNIT TAB PO SCH (08:34)
[2018-02-25] MEDS: ESCITALOPRAM 20 MG TAB PO SCH (08:35)
[2018-02-25] MEDS: ATORVASTATIN 10 MG TAB PO SCH (08:35)
[2018-02-25] MEDS: LORATADINE 10 MG TAB PO SCH (08:35)
[2018-02-25] MEDS: LISINOPRIL 5 MG TAB PO SCH (08:36)
[2018-02-25] MEDS: lamoTRIgine 25 MG TAB PO SCH ×2 (08:36→20:15)
[2018-02-25 10:17] LABS: Albumin 4.6 g/dL (3.5-5.0); Bilirubin, Delta 0.3 mg/dL (0.0-0.2); Bilirubin,Unconjugated 0.2 mg/dL (0.0-1.1); Total Bilirubin 0.5 mg/dL (0.2-1.3); Total Protein 7.4 g/dL (6.3-8.2)
--- NOTE | 2018-02-25 18:29 | P.PN ---
Progress Note - Text Progress Note Date: 02/25/18 Found him still very depressed anddown. Isolating and withdrawing. Medication complaint, tolerating them well MSE : Alert, awake, oriented in all spheres. Poor eye contact. Speech slow in soft tone, Mood dysphoric with congruent affect. Has suicidal ideation. No symptoms of psychoses. Insight and Judgment poor. A/P : Major Depressive Disorder, Recurrent without psychotic features Will adjust medications accordingly.
[2018-02-25] MEDS: ARIPiprazole 15 MG TAB PO SCH (20:15)
[2018-02-25] MEDS: cloNIDine HCL 0.1 MG TAB PO SCH (20:15)
[2018-02-26] MEDS: ATORVASTATIN 10 MG TAB PO SCH (07:57)
[2018-02-26] MEDS: lamoTRIgine 25 MG TAB PO SCH ×2 (07:57→20:35)
[2018-02-26] MEDS: LACOSAMIDE 50 MG TABLET PO SCH ×2 (07:57→20:34)
[2018-02-26] MEDS: LORATADINE 10 MG TAB PO SCH (07:57)
[2018-02-26] MEDS: ESCITALOPRAM 20 MG TAB PO SCH (07:59)
[2018-02-26] MEDS: LISINOPRIL 5 MG TAB PO SCH (07:59)
[2018-02-26] MEDS: CHOLECALCIFEROL 1,000 UNIT TAB PO SCH (07:59)
--- NOTE | 2018-02-26 10:15 | P.PN ---
Subjective Progress Note Date: 02/26/18 Principal diagnosis: major depressive disorder When winter comes I get really depressed Objective - Vital Signs Vital signs: Vital Signs Temp 98.1 F 02/26/18 06:40 Pulse 104 H 02/26/18 08:01 Resp 18 02/26/18 08:01 BP 134/73 02/26/18 08:01 Pulse Ox 95 02/23/18 19:31 Intake & Output 02/25/18 02/26/18 02/26/18 18:59 06:59 18:59 Weight 115.3 kg - Labs CBC & Chem 7: 02/24/18 12:16 02/24/18 12:16 Labs: Abnormal Lab Results - Last 24 Hours (Table) 02/25/18 Range/Units 09:09 Delta Bilirubin 0.3 H (0.0-0.2) mg/dL ALT 117 H (21-72) U/L Assessment and Plan Assessment: Mental Status Examination - General Appearance: [well groomed casual, appears stated age Speech/Language: [spontaneous, rapid, monotone, expressive, soft Attitude/Behavior: [cooperative] Mood: [depressed,, anxious, irritable, angry, fearful, hopelessness] Affect: [ flat, labile, blunted constricted] Orientation: [time, person, place situation] Thought Content: [wnl Risk Factors: [continues suicidal (ideations, plan), and/or Homicidal (ideations , plan), other] Perception: [wnl, hallucinations (auditory, visual, tactile), other] Thought Processes: [concrete, circumstantial, tangential, other] Concentration/Attention Span: [wnl] [Per observation and interview with the patient] Recent Memory: [wnl] [3 out of 3 in 3 minutes] Remote Memory: [wnl] [past events, as related history] Intelligence: [ average] [based on history, based on vocabulary, syntax, grammar , and content] Judgement: [good] [per patient's behavior/history of present illness] Insight: [good] [understanding severity of illness/history of present illness] Past Medical History Past Medical History: Hypertension Additional Past Medical History / Comment(s): Autism History of Any Multi-Drug Resistant Organisms: None Reported Past Surgical History: No Surgical Hx Reported Additional Past Surgical History / Comment(s): eye surgery Past Anesthesia/Blood Transfusion Reactions: No Reported Reaction Smoking Status: Never smoker Medications and Allergies Home Medications Medication Instructions Recorded Confirmed Type Brivaracetam [Briviact] 50 mg PO BID 04/22/17 02/23/18 History Cholecalciferol [Vitamin D3] 5,000 unit PO DAILY 04/22/17 02/23/18 History Dexmethylphenidate HCl [Focalin Xr] 30 mg PO QAM 04/22/17 02/24/18 History Lisinopril [Prinivil] 5 mg PO DAILY 04/22/17 02/24/18 History Loratadine [Claritin] 10 mg PO DAILY 04/22/17 02/24/18 History guanFACINE HCL [Intuniv] 4 mg PO DAILY 04/22/17 02/24/18 History ARIPiprazole [Abilify] 15 mg PO HS #30 tab 04/25/17 02/23/18 Rx Escitalopram [Lexapro] 20 mg PO DAILY #30 tab 04/25/17 02/24/18 Rx EPINEPHrine (Auto Inject) [Epipen] 0.3 mg IM ONCE PRN 02/23/18 02/24/18 History cloNIDine HCL [Catapres] 0.05 mg PO DAILY PRN 02/23/18 02/24/18 History cloNIDine HCL [Catapres] 0.1 mg PO HS 02/23/18 02/24/18 History lamoTRIgine [LaMICtal] 150 mg PO BID 02/23/18 02/24/18 History Allergies Allergy/AdvReac Type Severity Reaction Status Date / Time Cephalosporins Allergy Unknown Verified 02/24/18 06:10 iodine Allergy Unknown Verified 02/24/18 06:10 Penicillins Allergy Rash/Hives Verified 02/24/18 06:10 shellfish derived [Shellfish] Allergy Unknown Verified 02/24/18 06:10 sulfamethoxazole Allergy Unknown Verified 02/24/18 06:10 [From Bactrim] trimethoprim [From Bactrim] Allergy Unknown Verified 02/24/18 06:10 (1) Depression Current Visit: Yes Status: Acute Priority: High Code(s): F32.9 - MAJOR DEPRESSIVE DISORDER, SINGLE EPISODE, UNSPECIFIED SNOMED Code(s): 63726783 Plan: stop abilify and stop lexapro; add invega 3 mg po qhs Time with Patient: Less than 30
[2018-02-26] MEDS: cloNIDine HCL 0.1 MG TAB PO SCH (20:34)
[2018-02-26] MEDS ORDERED: PALIPERIDONE 3 MG TAB.ER.24 PO SCH (21:00)
[2018-02-27] MEDS: ATORVASTATIN 10 MG TAB PO SCH (09:11)
[2018-02-27] MEDS: LORATADINE 10 MG TAB PO SCH (09:11)
[2018-02-27] MEDS: CHOLECALCIFEROL 1,000 UNIT TAB PO SCH (09:12)
[2018-02-27] MEDS: LACOSAMIDE 50 MG TABLET PO SCH ×2 (09:12→20:44)
[2018-02-27] MEDS: lamoTRIgine 25 MG TAB PO SCH ×2 (09:13→20:44)
[2018-02-27] MEDS: LISINOPRIL 5 MG TAB PO SCH (09:13)
--- NOTE | 2018-02-27 13:35 | P.PN ---
Subjective Progress Note Date: 02/27/18 Principal diagnosis: major depressive disorder When winter comes I get really depressed however I feel better today, less SI and no HI. No auditory or visual Objective - Vital Signs Vital signs: Vital Signs Temp 97.7 F 02/27/18 06:37 Pulse 107 H 02/27/18 09:10 Resp 16 02/27/18 09:10 BP 133/79 02/27/18 09:10 Pulse Ox 95 02/23/18 19:31 - Labs CBC & Chem 7: 02/24/18 12:16 02/24/18 12:16 Assessment and Plan Assessment: Mental Status Examination - General Appearance: [well groomed casual, appears stated age Speech/Language: [spontaneous, rapid, monotone, expressive, soft Attitude/Behavior: [cooperative] Mood: [depressed,, anxious, irritable, angry, fearful, hopelessness] Affect: [ flat, labile, blunted constricted] Orientation: [time, person, place situation] Thought Content: [wnl Risk Factors: [continues suicidal (ideations, plan), and/or Homicidal (ideations , plan), other] Perception: [wnl, hallucinations (auditory, visual, tactile), other] Thought Processes: [concrete, circumstantial, tangential, other] Concentration/Attention Span: [wnl] [Per observation and interview with the patient] Recent Memory: [wnl] [3 out of 3 in 3 minutes] Remote Memory: [wnl] [past events, as related history] Intelligence: [ average] [based on history, based on vocabulary, syntax, grammar , and content] Judgement: [good] [per patient's behavior/history of present illness] Insight: [good] [understanding severity of illness/history of present illness] Past Medical History Past Medical History: Hypertension Additional Past Medical History / Comment(s): Autism History of Any Multi-Drug Resistant Organisms: None Reported Past Surgical History: No Surgical Hx Reported Additional Past Surgical History / Comment(s): eye surgery Past Anesthesia/Blood Transfusion Reactions: No Reported Reaction Smoking Status: Never smoker Medications and Allergies Home Medications Medication Instructions Recorded Confirmed Type Brivaracetam [Briviact] 50 mg PO BID 04/22/17 02/23/18 History Cholecalciferol [Vitamin D3] 5,000 unit PO DAILY 04/22/17 02/23/18 History Dexmethylphenidate HCl [Focalin Xr] 30 mg PO QAM 04/22/17 02/24/18 History Lisinopril [Prinivil] 5 mg PO DAILY 04/22/17 02/24/18 History Loratadine [Claritin] 10 mg PO DAILY 04/22/17 02/24/18 History guanFACINE HCL [Intuniv] 4 mg PO DAILY 04/22/17 02/24/18 History ARIPiprazole [Abilify] 15 mg PO HS #30 tab 04/25/17 02/23/18 Rx Escitalopram [Lexapro] 20 mg PO DAILY #30 tab 04/25/17 02/24/18 Rx EPINEPHrine (Auto Inject) [Epipen] 0.3 mg IM ONCE PRN 02/23/18 02/24/18 History cloNIDine HCL [Catapres] 0.05 mg PO DAILY PRN 02/23/18 02/24/18 History cloNIDine HCL [Catapres] 0.1 mg PO HS 02/23/18 02/24/18 History lamoTRIgine [LaMICtal] 150 mg PO BID 02/23/18 02/24/18 History Allergies Allergy/AdvReac Type Severity Reaction Status Date / Time Cephalosporins Allergy Unknown Verified 02/24/18 06:10 iodine Allergy Unknown Verified 02/24/18 06:10 Penicillins Allergy Rash/Hives Verified 02/24/18 06:10 shellfish derived [Shellfish] Allergy Unknown Verified 02/24/18 06:10 sulfamethoxazole Allergy Unknown Verified 02/24/18 06:10 [From Bactrim] trimethoprim [From Bactrim] Allergy Unknown Verified 02/24/18 06:10 (1) Depression Current Visit: Yes Status: Acute Priority: Low Code(s): F32.9 - MAJOR DEPRESSIVE DISORDER, SINGLE EPISODE, UNSPECIFIED SNOMED Code(s): 87932765 Plan: stop abilify and stop lexapro; add invega 6 mg po qhs Time with Patient: Less than 30
[2018-02-27] MEDS: cloNIDine HCL 0.1 MG TAB PO SCH (20:43)
[2018-02-27] MEDS ORDERED: PALIPERIDONE 6 MG TAB.ER.24 PO SCH (21:00)
[2018-02-28] MEDS: LACOSAMIDE 50 MG TABLET PO SCH ×2 (08:42→21:08)
[2018-02-28] MEDS: ATORVASTATIN 10 MG TAB PO SCH (08:42)
[2018-02-28] MEDS: lamoTRIgine 25 MG TAB PO SCH ×2 (08:43→21:09)
[2018-02-28] MEDS: LISINOPRIL 5 MG TAB PO SCH (08:43)
[2018-02-28] MEDS: cloNIDine HCL 0.1 MG TAB PO SCH ×2 (08:43→21:08)
[2018-02-28] MEDS: CHOLECALCIFEROL 1,000 UNIT TAB PO SCH (08:43)
[2018-02-28] MEDS: LORATADINE 10 MG TAB PO SCH (08:43)
[2018-02-28 08:48] VITALS: RESP 20
--- NOTE | 2018-02-28 09:36 | P.PN ---
Subjective Progress Note Date: 02/28/18 Principal diagnosis: major depressive disorder When winter comes I get really depressed however I feel better today, less SI and no HI. No auditory or visual Objective - Vital Signs Vital signs: Vital Signs Temp 98.1 F 02/28/18 06:16 Pulse 106 H 02/28/18 08:47 Resp 20 02/28/18 08:47 BP 131/71 02/28/18 08:47 Pulse Ox 95 02/23/18 19:31 - Labs CBC & Chem 7: 02/24/18 12:16 02/24/18 12:16 Assessment and Plan Assessment: Mental Status Examination - General Appearance: [well groomed casual, appears stated age Speech/Language: [spontaneous, rapid, monotone, expressive, soft Attitude/Behavior: [cooperative] Mood: [depressed,, anxious, irritable, angry, fearful, hopelessness] Affect: [ flat, labile, blunted constricted] Orientation: [time, person, place situation] Thought Content: [wnl Risk Factors: [continues suicidal (ideations, plan), and/or Homicidal (ideations , plan), other] Perception: [wnl, hallucinations (auditory, visual, tactile), other] Thought Processes: [concrete, circumstantial, tangential, other] Concentration/Attention Span: [wnl] [Per observation and interview with the patient] Recent Memory: [wnl] [3 out of 3 in 3 minutes] Remote Memory: [wnl] [past events, as related history] Intelligence: [ average] [based on history, based on vocabulary, syntax, grammar , and content] Judgement: [good] [per patient's behavior/history of present illness] Insight: [good] [understanding severity of illness/history of present illness] Past Medical History Past Medical History: Hypertension Additional Past Medical History / Comment(s): Autism History of Any Multi-Drug Resistant Organisms: None Reported Past Surgical History: No Surgical Hx Reported Additional Past Surgical History / Comment(s): eye surgery Past Anesthesia/Blood Transfusion Reactions: No Reported Reaction Smoking Status: Never smoker Medications and Allergies Home Medications Medication Instructions Recorded Confirmed Type Brivaracetam [Briviact] 50 mg PO BID 04/22/17 02/23/18 History Cholecalciferol [Vitamin D3] 5,000 unit PO DAILY 04/22/17 02/23/18 History Dexmethylphenidate HCl [Focalin Xr] 30 mg PO QAM 04/22/17 02/24/18 History Lisinopril [Prinivil] 5 mg PO DAILY 04/22/17 02/24/18 History Loratadine [Claritin] 10 mg PO DAILY 04/22/17 02/24/18 History guanFACINE HCL [Intuniv] 4 mg PO DAILY 04/22/17 02/24/18 History ARIPiprazole [Abilify] 15 mg PO HS #30 tab 04/25/17 02/23/18 Rx Escitalopram [Lexapro] 20 mg PO DAILY #30 tab 04/25/17 02/24/18 Rx EPINEPHrine (Auto Inject) [Epipen] 0.3 mg IM ONCE PRN 02/23/18 02/24/18 History cloNIDine HCL [Catapres] 0.05 mg PO DAILY PRN 02/23/18 02/24/18 History cloNIDine HCL [Catapres] 0.1 mg PO HS 02/23/18 02/24/18 History lamoTRIgine [LaMICtal] 150 mg PO BID 02/23/18 02/24/18 History Allergies Allergy/AdvReac Type Severity Reaction Status Date / Time Cephalosporins Allergy Unknown Verified 02/24/18 06:10 iodine Allergy Unknown Verified 02/24/18 06:10 Penicillins Allergy Rash/Hives Verified 02/24/18 06:10 shellfish derived [Shellfish] Allergy Unknown Verified 02/24/18 06:10 sulfamethoxazole Allergy Unknown Verified 02/24/18 06:10 [From Bactrim] trimethoprim [From Bactrim] Allergy Unknown Verified 02/24/18 06:10 (1) Depression Current Visit: Yes Status: Acute Priority: Low Code(s): F32.9 - MAJOR DEPRESSIVE DISORDER, SINGLE EPISODE, UNSPECIFIED SNOMED Code(s): 55485880 Plan: stop abilify and stop lexapro; add invega 9 mg po qhs Time with Patient: Less than 30
[2018-02-28] MEDS ORDERED: PALIPERIDONE 3 MG TAB.ER.24 PO SCH (21:00)
[2018-03-01 08:09] VITALS: TEMP 98
[2018-03-01] MEDS: LORATADINE 10 MG TAB PO SCH (08:30)
[2018-03-01] MEDS: CHOLECALCIFEROL 1,000 UNIT TAB PO SCH (08:30)
[2018-03-01] MEDS: lamoTRIgine 25 MG TAB PO SCH (08:30)
[2018-03-01] MEDS: cloNIDine HCL 0.1 MG TAB PO SCH (08:30)
[2018-03-01] MEDS: LACOSAMIDE 50 MG TABLET PO SCH (08:30)
[2018-03-01] MEDS: LISINOPRIL 5 MG TAB PO SCH (08:30)
[2018-03-01] MEDS: ATORVASTATIN 10 MG TAB PO SCH (08:30)
[2018-03-01] MEDS ORDERED: PALIPERIDONE IM 234 MG/1.5 ML SYG IM STA (10:58)
[2018-03-01 11:01] VITALS: BP 124/95; PULSE 114
--- NOTE | 2018-03-01 11:12 | P.DS ---
Providers Date of admission: 02/23/18 19:44 Expected date of discharge: 03/01/18 Attending physician: Grayson De León DO Consults: 02/23/18 20:37 Consult Physician Routine Consulting Provider: Dalia Murrell Consult Reason/Comments: H&P for mental health consult Do you want consulting provider notified?: Yes, Notify in am Primary care physician: [facility] - Discharge Diagnosis(es) (1) Depression Chief Complaint : Suicidal ideation HPI : Mr. May is 22 yo single male with h/o depression and autism admitted here secondary to suicidal ideation with a plan to slit his throat. Reportedly he has been feeling depressed lately. It has been getting worse. He has been suicidal in past and attempted by suffocating himself. He has been treated with antidepressants and he ash sbeen complaint on his medications. He denies any symptoms of mood swings, psychoses or OCD. Past Medical History Past Medical History: Hypertension Additional Past Medical History / Comment(s): Autism History of Any Multi-Drug Resistant Organisms: None Reported Past Surgical History: No Surgical Hx Reported Additional Past Surgical History / Comment(s): eye surgery Past Anesthesia/Blood Transfusion Reactions: No Reported Reaction Smoking Status: Never smoker Medications and Allergies Home Medications Medication Instructions Recorded Confirmed Type Brivaracetam [Briviact] 50 mg PO BID 04/22/17 02/23/18 History Cholecalciferol [Vitamin D3] 5,000 unit PO DAILY 04/22/17 02/23/18 History Dexmethylphenidate HCl [Focalin Xr] 30 mg PO QAM 04/22/17 02/24/18 History Lisinopril [Prinivil] 5 mg PO DAILY 04/22/17 02/24/18 History Loratadine [Claritin] 10 mg PO DAILY 04/22/17 02/24/18 History guanFACINE HCL [Intuniv] 4 mg PO DAILY 04/22/17 02/24/18 History ARIPiprazole [Abilify] 15 mg PO HS #30 tab 04/25/17 02/23/18 Rx Escitalopram [Lexapro] 20 mg PO DAILY #30 tab 04/25/17 02/24/18 Rx EPINEPHrine (Auto Inject) [Epipen] 0.3 mg IM ONCE PRN 02/23/18 02/24/18 History cloNIDine HCL [Catapres] 0.05 mg PO DAILY PRN 02/23/18 02/24/18 History cloNIDine HCL [Catapres] 0.1 mg PO HS 02/23/18 02/24/18 History lamoTRIgine [LaMICtal] 150 mg PO BID 02/23/18 02/24/18 History Allergies Allergy/AdvReac Type Severity Reaction Status Date / Time Cephalosporins Allergy Unknown Verified 02/24/18 06:10 iodine Allergy Unknown Verified 02/24/18 06:10 Penicillins Allergy Rash/Hives Verified 02/24/18 06:10 shellfish derived [Shellfish] Allergy Unknown Verified 02/24/18 06:10 sulfamethoxazole Allergy Unknown Verified 02/24/18 06:10 [From Bactrim] trimethoprim [From Bactrim] Allergy Unknown Verified 02/24/18 06:10 Current Visit: Yes Status: Acute Priority: Low Hospital Course: This 22-year-old has a history of OCD depression and seizure disorder refractory to 1 anticonvulsant. He is evaluated and treated for depression and taken off his Lexapro and placed on Invega with the titration to 234 mg every 28 days and his first dose was today 03/01/2018. He was seen by medicine and evaluated and their findings are found in the chart. I also stopped the Abilify and as mentioned above converted to Invega which seemed to decrease his anxiety and his suicidal thoughts. He also had anxiety and was placed on clonidine 0.1 mg 3 times a day for normal he has anxiety but also is mild hypertension. He was still on 15 minute checks while on the unit, participated in groups and evaluated by social work and felt placement back to his mother's home was appropriate. He was also going to be picked up by his aunt today an injection was given before he was ready to leave. Patient Condition at Discharge: Stable Plan - Discharge Summary Discharge Rx Participant: Yes New Discharge Prescriptions: New Atorvastatin [Lipitor] 10 mg PO DAILY 30 Days #30 tab cloNIDine HCL [Catapres] 0.1 mg PO BID 30 Days #60 tab Lacosamide [Vimpat] 100 mg PO BID 30 Days #60 tablet Paliperidone [Invega] 9 mg PO 2100 30 Days #30 tab.er.24 Paliperidone IM [Invega Sustenna] 234 mg IM ONCE 28 Days #1 syringe Continue guanFACINE HCL [Intuniv] 4 mg PO DAILY Lisinopril [Prinivil] 5 mg PO DAILY Brivaracetam [Briviact] 50 mg PO BID EPINEPHrine (Auto Inject) [Epipen] 0.3 mg IM ONCE PRN PRN Reason: Anaphylaxis lamoTRIgine [LaMICtal] 150 mg PO BID 30 Days #60 tablet Discontinued Cholecalciferol [Vitamin D3] 5,000 unit PO DAILY Loratadine [Claritin] 10 mg PO DAILY Dexmethylphenidate HCl [Focalin Xr] 30 mg PO QAM Escitalopram [Lexapro] 20 mg PO DAILY #30 tab ARIPiprazole [Abilify] 15 mg PO HS #30 tab cloNIDine HCL [Catapres] 0.1 mg PO HS cloNIDine HCL [Catapres] 0.05 mg PO DAILY PRN PRN Reason: ANXIETY PROVOKING SOCIAL EVENT Discharge Medication List Brivaracetam [Briviact] 50 mg PO BID 04/22/17 [History] Lisinopril [Prinivil] 5 mg PO DAILY 04/22/17 [History] guanFACINE HCL [Intuniv] 4 mg PO DAILY 04/22/17 [History] EPINEPHrine (Auto Inject) [Epipen] 0.3 mg IM ONCE PRN 02/23/18 [History] Atorvastatin [Lipitor] 10 mg PO DAILY 30 Days #30 tab 03/01/18 [Rx] Lacosamide [Vimpat] 100 mg PO BID 30 Days #60 tablet 03/01/18 [Rx] Paliperidone IM [Invega Sustenna] 234 mg IM ONCE 28 Days #1 syringe 03/01/18 [Rx ] Paliperidone [Invega] 9 mg PO 2100 30 Days #30 tab.er.24 03/01/18 [Rx] cloNIDine HCL [Catapres] 0.1 mg PO BID 30 Days #60 tab 03/01/18 [Rx] lamoTRIgine [LaMICtal] 150 mg PO BID 30 Days #60 tablet 03/01/18 [Rx] Follow up Appointment(s)/Referral(s): [facility] [Outside] - 03/06/18 2:00 pm (03-06-18 @ 2:[address] Reyes 03-08-18 @ 4:00 with Suzanne Chapa ) [facility] - 1-2 days Patient Instructions/Handouts: Depression (DC), Suicide Prevention (DC) Activity/Diet/Wound Care/Special Instructions: Activity and Diet as tolerated. Avoid the use of street drugs and alcohol. Take all medications as prescribed, when you are in need of refills contact your medical doctor or psychiatrist. Please go to all scheduled outpatient appointments for aftercare treatment. If symptoms return or worsen you can call the crisis line @ and/or return to the nearest emergency room for evaluation. Discharge Disposition: HOME SELF-CARE
== END 2018-03-01 12:46 | disposition home or self-care (01) | DRG 885 ==
LOC: EC 15:30 → 3MHU 19:44
PROVIDERS: ADMIT Psychiatry & Neurology Psychiatry; ATTEND Psychiatry & Neurology Psychiatry
DX: F31.30 Bipolar disorder, current episode depressed, mild or moderate severity, unspecified (principal); R45.851 Suicidal ideations; F41.9 Anxiety disorder, unspecified; F42.9 Obsessive-compulsive disorder, unspecified; F84.0 Autistic disorder; F90.9 Attention-deficit hyperactivity disorder, unspecified type; G40.909 Epilepsy, unspecified, not intractable, without status epilepticus; I10 Essential (primary) hypertension; J45.909 Unspecified asthma, uncomplicated; S60.221A Contusion of right hand, initial encounter; X83.8XXA Intentional self-harm by other specified means, initial encounter; S60.511A Abrasion of right hand, initial encounter; Z91.5 Personal history of self-harm; R94.5 Abnormal results of liver function studies; Z88.2 Allergy status to sulfonamides; Z88.8 Allergy status to other drugs, medicaments and biological substances; Z88.1 Allergy status to other antibiotic agents; Z88.0 Allergy status to penicillin; Z91.013 Allergy to seafood; Z79.899 Other long term (current) drug therapy
CPT/HCPCS: 80053; 80061; 80076; 80306; 81003; 82075; 83036; 84443; 85025; 99285

== ENCOUNTER → 2019-01-14 | Outpatient (CLI) | payer OTHER | END | disposition home or self-care (01) | LOC: LABWHC1 09:26 | PROVIDERS: ATTEND Psychiatry & Neurology Neurology | DX: G40.A09 Absence epileptic syndrome, not intractable, without status epilepticus (principal) | CPT/HCPCS: 36415; 80175 ==

== ENCOUNTER → 2020-05-28 | Outpatient (CLI) | payer OTHER | END | disposition home or self-care (01) | LOC: LABWHC1 09:58 | PROVIDERS: ATTEND Psychiatry & Neurology Neurology | DX: G40.A09 Absence epileptic syndrome, not intractable, without status epilepticus (principal) | CPT/HCPCS: 36415; 80175 ==

== ENCOUNTER 2020-06-02 01:10 | Emergency (ER) | payer OTHER ==
[2020-06-02 01:21] VITALS: TEMP 98.3
[2020-06-02] MEDS ORDERED: ONDANSETRON 4 MG/2 ML VIAL IVP STA (01:26)
[2020-06-02] MEDS ORDERED: KETOROLAC 15 MG/ML 1 ML VIAL IVP STA (01:26)
[2020-06-02] MEDS ORDERED: SODIUM CHLORIDE 0.9% 1,000 ML IV STA (01:26)
--- NOTE | 2020-06-02 01:29 | ED ---
Abdominal Pain HPI - General Source: patient, EMS Mode of arrival: EMS Limitations: no limitations <Kayleigh Kruger - Last Filed: 06/02/20 02:49> <Rodrigo Oliveira - Last Filed: 06/02/20 03:11> - General Chief Complaint: Abdominal Pain Stated Complaint: ABD pain Time Seen by Provider: 06/02/20 01:11 - History of Present Illness Initial Comments: 24-year-old male patient presents to the emergency department today for evaluation of lower abdominal pain. Patient states the pain started a couple of hours ago. States he did have one episode of vomiting. Denies any diarrhea. States he had a normal bowel movement yesterday. Denies any hematochezia, melena, or hematemesis. Denies fever or chills. Denies any history of similar type pain. Denies history of abdominal surgery. States the pain is inte rmittent, denies radiation through to his back. Denies any testicular pain or trouble with urination. Patient denies any recent rash, cough, shortness of breath, chest pain, back pain, numbness, tingling, dizziness, weakness, hematuria, dysuria, urinary urgency, urinary frequency, headache, visual changes, or any other complaints. Patient does report a history of type II but diabetes, has not been checking his blood sugars. He takes metformin. (Kayleigh Kruger) - Related Data Home Medications Medication Instructions Recorded Confirmed Brivaracetam [Briviact] 50 mg PO BID 04/22/17 02/23/18 guanFACINE HCL [Intuniv] 4 mg PO DAILY 04/22/17 02/24/18 lisinopriL [Prinivil] 5 mg PO DAILY 04/22/17 02/24/18 EPINEPHrine (Auto Inject) [Epipen] 0.3 mg IM ONCE PRN 02/23/18 02/24/18 Previous Rx's Medication Instructions Recorded Atorvastatin [Lipitor] 10 mg PO DAILY 30 Days #30 tab 03/01/18 Lacosamide [Vimpat] 100 mg PO BID 30 Days #60 tablet 03/01/18 Paliperidone IM [Invega Sustenna] 234 mg IM ONCE 28 Days #1 syringe 03/01/18 Paliperidone [Invega] 9 mg PO 2100 30 Days #30 tab.er.24 03/01/18 cloNIDine HCL [Catapres] 0.1 mg PO BID 30 Days #60 tab 03/01/18 lamoTRIgine [LaMICtal] 150 mg PO BID 30 Days #60 tablet 03/01/18 Allergies Allergy/AdvReac Type Severity Reaction Status Date / Time Cephalosporins Allergy Unknown Verified 06/02/20 01:21 iodine Allergy Unknown Verified 06/02/20 01:21 Penicillins Allergy Rash/Hives Verified 06/02/20 01:21 shellfish derived [Shellfish] Allergy Unknown Verified 06/02/20 01:21 sulfamethoxazole Allergy Unknown Verified 06/02/20 01:21 [From Bactrim] trimethoprim [From Bactrim] Allergy Unknown Verified 06/02/20 01:21 Review of Systems ROS Other: All systems not noted in ROS Statement are negative. <Kayleigh Kruger - Last Filed: 06/02/20 02:49> ROS Other: All systems not noted in ROS Statement are negative. <Rodrigo Oliveira - Last Filed: 06/02/20 03:11> ROS Statement: Those systems with pertinent positive or pertinent negative responses have been documented in the HPI. Past Medical History Past Medical History: Diabetes Mellitus, Hypertension Additional Past Medical History / Comment(s): Autism History of Any Multi-Drug Resistant Organisms: None Reported Past Surgical History: No Surgical Hx Reported Additional Past Surgical History / Comment(s): eye surgery Past Anesthesia/Blood Transfusion Reactions: No Reported Reaction Past Psychological History: ADD/ADHD, Anxiety, Bipolar Smoking Status: Never smoker Past Alcohol Use History: None Reported Past Drug Use History: None Reported <Kayleigh Kruger - Last Filed: 06/02/20 02:49> General Exam Limitations: no limitations General appearance: alert, in no apparent distress, other (This is a well- developed, well-nourished adult male patient in no acute distress. Vital signs upon presentation are temperature 98.3F, pulse 84, respirations 16, blood pressure 140/88, pulse ox 98% on room air.) Eye exam: Present: normal appearance, PERRL, EOMI. Absent: scleral icterus, conjunctival injection, periorbital swelling ENT exam: Present: normal exam, normal oropharynx, mucous membranes moist Respiratory exam: Present: normal lung sounds bilaterally. Absent: respiratory distress, wheezes, rales, rhonchi, stridor Cardiovascular Exam: Present: regular rate, normal rhythm, normal heart sounds. Absent: systolic murmur, diastolic murmur, rubs, gallop, clicks GI/Abdominal exam: Present: soft, tenderness (Lower abdominal tenderness worse over the suprapubic region), normal bowel sounds. Absent: distended, guarding, rebound, rigid Neurological exam: Present: alert, oriented X3, CN II-XII intact Psychiatric exam: Present: normal affect, normal mood Skin exam: Present: warm, dry, intact, normal color. Absent: rash <Kayleigh Kruger - Last Filed: 06/02/20 02:49> General appearance: alert, in no apparent distress Head exam: Present: atraumatic, normocephalic, normal inspection Eye exam: Present: normal appearance, PERRL, EOMI. Absent: scleral icterus, conjunctival injection, periorbital swelling ENT exam: Present: normal exam, mucous membranes moist Neck exam: Present: normal inspection. Absent: tenderness, meningismus, lymphadenopathy Respiratory exam: Present: normal lung sounds bilaterally. Absent: respiratory distress, wheezes, rales, rhonchi, stridor Cardiovascular Exam: Present: regular rate, normal rhythm, normal heart sounds. Absent: systolic murmur, diastolic murmur, rubs, gallop, clicks GI/Abdominal exam: Present: soft, normal bowel sounds. Absent: distended, tenderness, guarding, rebound, rigid Extremities exam: Present: normal inspection, full ROM, normal capillary refill. Absent: tenderness, pedal edema, joint swelling, calf tenderness Back exam: Present: normal inspection Neurological exam: Present: alert, oriented X3, CN II-XII intact Psychiatric exam: Present: normal affect, normal mood Skin exam: Present: warm, dry, intact, normal color. Absent: rash <Rodrigo Oliveira - Last Filed: 06/02/20 03:11> Course <Rodrigo Oliveira - Last Filed: 06/02/20 03:11> Vital Signs 06/02/20 06/02/20 01:11 03:00 Temperature 98.3 F Pulse Rate 84 70 Respiratory 16 18 Rate Blood Pressure 140/88 127/61 O2 Sat by Pulse 98 98 Oximetry - Reevaluation(s) Reevaluation #1: 06/02/20 03:11 Medical record is reviewed (Rodrigo Oliveira) Reevaluation #2: 06/02/20 03:11 On reevaluation patient feels well (Rodrigo Oliveira) Reevaluation #3: 06/02/20 03:11 Patient informed of results here in the ER questions have been answered (Rodrigo Oliveira) Medical Decision Making - Lab Data Result diagrams: 06/02/20 01:45 06/02/20 01:45 <Kayleigh Kruger - Last Filed: 06/02/20 02:49> - Lab Data Result diagrams: 06/02/20 01:45 06/02/20 01:45 - Radiology Data Radiology results: report reviewed (CT abdomen and pelvis negative for acute disease), image reviewed <Rodrigo Oliveira - Last Filed: 06/02/20 03:11> - Medical Decision Making 24-year-old male patient presents to the emergency department today for evaluation of periumbilical lower abdominal pain. Physical examination did reveal suprapubic and right lower quadrant tenderness. Labs reviewed and did reveal elevated white blood cell count at 12.5. He did have an episode of vomiting so we did proceed with computed tomography scan results are pending. Patient was given IV fluids and nausea medication. At this time care will be handed over to my attending Dr. Oliveira to manage until disposition. (Kayleigh Kruger) 24 male nonspecific abdominal pain. Lab values and CT is negative patient can be discharged home (Rodrigo Oliveira) - Lab Data Lab Results 06/02/20 06/02/20 06/02/20 Range/Units 01:45 01:45 01:45 WBC 12.5 H (3.8-10.6) k/uL RBC 5.49 (4.30-5.90) m/uL Hgb 15.2 (13.0-17.5) gm/dL Hct 46.3 (39.0-53.0) % MCV 84.3 (80.0-100.0) fL MCH 27.6 (25.0-35.0) pg MCHC 32.8 (31.0-37.0) g/dL RDW 13.0 (11.5-15.5) % Plt Count 214 (150-450) k/uL MPV 7.2 Neutrophils % 84 % Lymphocytes % 10 % Monocytes % 4 % Eosinophils % 2 % Basophils % 0 % Neutrophils # 10.4 H (1.3-7.7) k/uL Lymphocytes # 1.3 (1.0-4.8) k/uL Monocytes # 0.5 (0-1.0) k/uL Eosinophils # 0.2 (0-0.7) k/uL Basophils # 0.1 (0-0.2) k/uL Sodium 135 L (137-145) mmol/L Potassium 5.9 H (3.5-5.1) mmol/L Chloride 101 (98-107) mmol/L Carbon Dioxide 24 (22-30) mmol/L Anion Gap 10 mmol/L BUN 19 (9-20) mg/dL Creatinine 0.79 (0.66-1.25) mg/dL Est GFR (CKD-EPI)AfAm >90 (>60 ml/min/1.73 sqM) Est GFR (CKD-EPI)NonAf >90 (>60 ml/min/1.73 sqM) Glucose 132 H (74-99) mg/dL Plasma Lactic Acid Ezio 1.9 (0.7-2.0) mmol/L Calcium 9.0 (8.4-10.2) mg/dL Total Bilirubin 0.8 (0.2-1.3) mg/dL AST 77 H (17-59) U/L ALT 122 H (4-49) U/L Alkaline Phosphatase 72 (38-126) U/L Total Protein 7.4 (6.3-8.2) g/dL Albumin 4.4 (3.5-5.0) g/dL Lipase 42 (23-300) U/L Urine Color Urine Appearance (Clear) Urine pH (5.0-8.0) Ur Specific [place] (1.001-1.035) Urine Protein (Negative) Urine Glucose (UA) (Negative) Urine Ketones (Negative) Urine Blood (Negative) Urine Nitrite (Negative) Urine Bilirubin (Negative) Urine Urobilinogen (<2.0) mg/dL Ur Leukocyte Esterase (Negative) Urine RBC (0-5) /hpf Urine WBC (0-5) /hpf Ur Squamous Epith Cells (0-4) /hpf Hyaline Casts (0-2) /lpf Urine Mucus (None) /hpf 06/02/20 Range/Units 01:58 WBC (3.8-10.6) k/uL RBC (4.30-5.90) m/uL Hgb (13.0-17.5) gm/dL Hct (39.0-53.0) % MCV (80.0-100.0) fL MCH (25.0-35.0) pg MCHC (31.0-37.0) g/dL RDW (11.5-15.5) % Plt Count (150-450) k/uL MPV Neutrophils % % Lymphocytes % % Monocytes % % Eosinophils % % Basophils % % Neutrophils # (1.3-7.7) k/uL Lymphocytes # (1.0-4.8) k/uL Monocytes # (0-1.0) k/uL Eosinophils # (0-0.7) k/uL Basophils # (0-0.2) k/uL Sodium (137-145) mmol/L Potassium (3.5-5.1) mmol/L Chloride (98-107) mmol/L Carbon Dioxide (22-30) mmol/L Anion Gap mmol/L BUN (9-20) mg/dL Creatinine (0.66-1.25) mg/dL Est GFR (CKD-EPI)AfAm (>60 ml/min/1.73 sqM) Est GFR (CKD-EPI)NonAf (>60 ml/min/1.73 sqM) Glucose (74-99) mg/dL Plasma Lactic Acid Ezio (0.7-2.0) mmol/L Calcium (8.4-10.2) mg/dL Total Bilirubin (0.2-1.3) mg/dL AST (17-59) U/L ALT (4-49) U/L Alkaline Phosphatase (38-126) U/L Total Protein (6.3-8.2) g/dL Albumin (3.5-5.0) g/dL Lipase (23-300) U/L Urine Color Yellow Urine Appearance Clear (Clear) Urine pH 5.5 (5.0-8.0) Ur Specific [place] 1.031 (1.001-1.035) Urine Protein 1+ H (Negative) Urine Glucose (UA) Negative (Negative) Urine Ketones Negative (Negative) Urine Blood Negative (Negative) Urine Nitrite Negative (Negative) Urine Bilirubin Negative (Negative) Urine Urobilinogen 2.0 (<2.0) mg/dL Ur Leukocyte Esterase Negative (Negative) Urine RBC 1 (0-5) /hpf Urine WBC 2 (0-5) /hpf Ur Squamous Epith Cells <1 (0-4) /hpf Hyaline Casts 30 H (0-2) /lpf Urine Mucus Many H (None) /hpf Disposition <Kayleigh Kruger - Last Filed: 06/02/20 02:49> Is patient prescribed a controlled substance at d/c from ED?: No <Rodrigo Oliveira - Last Filed: 06/02/20 03:11> Clinical Impression: Abdominal pain Disposition: HOME SELF-CARE Condition: Good Instructions (If sedation given, give patient instructions): Abdominal Pain (ED) Referrals: None,Stated [Primary Care Provider] - 1-2 days
[2020-06-02 02:03] LABS: Basophils # (A) 0.1 k/uL (0-0.2); Basophils % (A) 0 %; Eosinophils # (A) 0.2 k/uL (0-0.7); Eosinophils % (A) 2 %; HCT 46.3 % (39.0-53.0); HGB 15.2 gm/dL (13.0-17.5); Lymphocytes # (A) 1.3 k/uL (1.0-4.8); Lymphocytes % (A) 10 %; MCH 27.6 pg (25.0-35.0); MCHC 32.8 g/dL (31.0-37.0); MCV 84.3 fL (80.0-100.0); Mean Platelet Volume 7.2; Monocytes # (A) 0.5 k/uL (0-1.0); Monocytes % (A) 4 %; Neutrophils # (A) 10.4 k/uL (1.3-7.7); Neutrophils % (A) 84 %; Platelet Count 214 k/uL (150-450); RBC 5.49 m/uL (4.30-5.90); WBC 12.5 k/uL (3.8-10.6)
[2020-06-02] MEDS ORDERED: FAMOTIDINE 20 MG/2 ML VIAL IV STA (02:06)
[2020-06-02] MEDS ORDERED: methylPREDNISolone SOD SUCCI 125 MG/2 ML VIAL IV STA (02:06)
[2020-06-02] MEDS ORDERED: diphenhydrAMINE 50 MG/ML 1 ML VIAL IVP STA (02:06)
[2020-06-02 02:16] LABS: ALT 122 U/L (4-49); AST 77 U/L (17-59); African American GFR (CKD) >90 (>60 ml/min/1.73 sqM); Albumin 4.4 g/dL (3.5-5.0); Alkaline Phosphatase 72 U/L (38-126); Anion Gap 10 mmol/L; Blood Urea Nitrogen 19 mg/dL (9-20); Carbon Dioxide 24 mmol/L (22-30); Chloride 101 mmol/L (98-107); Glucose 132 mg/dL (74-99); Lipase 42 U/L (23-300); Non-African American GFR(CKD) >90 (>60 ml/min/1.73 sqM); Potassium 5.9 mmol/L (3.5-5.1); Sodium 135 mmol/L (137-145); Total Bilirubin 0.8 mg/dL (0.2-1.3); Total Protein 7.4 g/dL (6.3-8.2)
[2020-06-02 02:28] LABS: Appearance,Urine Clear (Clear); Bilirubin,Urine Negative (Negative); Blood,Urine Negative (Negative); Color,Urine Yellow; Glucose,Urine (UA) Negative (Negative); Hyaline Casts,Urine 30 /lpf (0-2); Ketones,Urine Negative (Negative); Leukocyte Esterase,Urine Negative (Negative); Mucus,Urine Many /hpf; Nitrite,Urine Negative (Negative); PH, Urine 5.5 (5.0-8.0); Protein,Urine 1+ (Negative); RBC,Urine 1 /hpf (0-5); Specific Gravity,Urine 1.031 (1.001-1.035); Squamous Epithelial Cell,Urine <1 /hpf (0-4); WBC,Urine 2 /hpf (0-5)
[2020-06-02 03:06] VITALS: BP 127/61; PULSE 70; RESP 18
--- NOTE | 2020-06-02 03:10 | CT ---
EXAM: CT Abdomen and Pelvis With Intravenous Contrast CLINICAL HISTORY: ITS.REASON CT Reason: right lower quadrant pain TECHNIQUE: Axial computed tomography images of the abdomen and pelvis with intravenous contrast. CTDI is 48.67 mGy and DLP is 2333.2 mGy-cm. This CT exam was performed using one or more of the following dose reduction techniques: automated exposure control, adjustment of the mA and/or kV according to patient size, and/or use of iterative reconstruction technique. COMPARISON: No relevant prior studies available. FINDINGS: Lung bases: No mass. No consolidation. ABDOMEN: Liver: Enlarged severe fatty infiltrated liver. Gallbladder and bile ducts: Unremarkable. Pancreas: Unremarkable. Spleen: Unremarkable. Adrenals: Unremarkable. Kidneys and ureters: No hydronephrosis. Stomach and bowel: No bowel obstruction. No bowel wall thickening. PELVIS: Appendix: No evidence of appendicitis. Bladder: Unremarkable. Reproductive: Unremarkable. ABDOMEN and PELVIS: Intraperitoneal space: Unremarkable. Bones/joints: No acute fractures. Soft tissues: Unremarkable. Vasculature: No abdominal aortic aneurysm. Lymph nodes: No enlarged lymph nodes. IMPRESSION: 1. Normal appendix. 2. Enlarged severe fatty infiltrated liver.
== END 2020-06-02 03:26 | disposition home or self-care (01) ==
LOC: EC 01:10
DX: R10.33 Periumbilical pain (principal); E11.9 Type 2 diabetes mellitus without complications; I10 Essential (primary) hypertension
CPT/HCPCS: 36415; 80053; 83605; 83690; 85025; 81001; 74177; 99284; 96374; 96375; 96361; J1200; J2930; J1885; Q9967

== ENCOUNTER 2022-04-13 14:17 | Emergency (ER) | payer OTHER ==
[2022-04-13 14:27] VITALS: BP 137/93; PULSE 102; RESP 18; TEMP 98
[2022-04-13] MEDS ORDERED: ACETAMINOPHEN TAB 325 MG TAB PO STA (15:08)
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
--- NOTE | 2022-04-13 15:53 | XR ---
EXAMINATION TYPE: XR hand complete RT DATE OF EXAM: 04/13/2022 COMPARISON: NONE HISTORY: Pain TECHNIQUE: Three views are submitted. FINDINGS: The osseous structures are intact. The joint spaces are preserved and there is no acute fracture or dislocation. IMPRESSION: 1. No definite acute fracture or dislocation if symptoms persist, follow-up study in 7 to 10 days wo uld be suggested
[2022-04-13 17:38] LABS: Amphetamine Screen,Urine Not Detected (NotDetected); Barbiturate Screen,Urine Not Detected (NotDetected); Benzodiazepines Screen,Urine Not Detected (NotDetected); Cocaine Screen,Urine Not Detected (NotDetected); Methadone Screen, Urine Not Detected (NotDetected); Opiate Screen,Urine Not Detected (NotDetected); Oxycodone Screen, Urine Not Detected (NotDetected); Phencyclidine Screen,Urine Not Detected (NotDetected); Tricyclic Antidepressant,Urine Not Detected (NotDetected); Urn Cannabinoid Scrn Not Detected (NotDetected)
== END 2022-04-13 18:51 | disposition home or self-care (01) ==
LOC: EC 14:17
DX: F60.9 Personality disorder, unspecified (principal); F41.9 Anxiety disorder, unspecified; E11.9 Type 2 diabetes mellitus without complications; I10 Essential (primary) hypertension; F31.9 Bipolar disorder, unspecified; Z88.2 Allergy status to sulfonamides; Z88.0 Allergy status to penicillin; Z91.041 Radiographic dye allergy status; Z88.1 Allergy status to other antibiotic agents; Z79.899 Other long term (current) drug therapy
CPT/HCPCS: 80306; 82075; 99285

== ENCOUNTER → 2023-10-13 | Outpatient (CLI) | payer OTHER | END | disposition home or self-care (01) | LOC: LABWHC1 10:29 | PROVIDERS: ATTEND Psychiatry & Neurology Neurology | DX: G40.A09 Absence epileptic syndrome, not intractable, without status epilepticus (principal) | CPT/HCPCS: 36415 ==